=== PATIENT | female | born 1950 | race Caucasian/White ===

== ENCOUNTER 2021-12-15 09:24 | Emergency (ER) | payer MEDICARE, SELFPAY ==
--- NOTE | ~2021-12-15 | CT_ITS ---
EXAMINATION: CT ABDOMEN AND PELVIS WITH CONTRAST CLINICAL INFORMATION: Fever. Lower abdominal pain. Left flank pain. Dysuria. COMPARISON: None TECHNIQUE: Multidetector volumetric images were obtained from the superior aspect of the liver through the pubic symphysis following administration 85 mL of Omnipaque 350 intravenous contrast. Sagittal and coronal reformatted images were obtained on the technologist's workstation. Oral contrast: No. This CT examination was performed using dose optimization techniques as appropriate, variously including the following: *Automated exposure control *Adjustment of mA and/or kV according to patient size (this includes techniques or standardized protocols for targeted exams where dose is matched to indication/reason for exam; i.e. extremities or head) *Use of iterative reconstruction technique DLP: 338 mGy-cm FINDINGS: LUNG BASES: Mild changes of bronchiectasis are noted at the lung bases. No pleural or pericardial effusion. LIVER, GALLBLADDER, AND BILIARY TREE: The liver is normal in size, shape, and attenuation. No biliary ductal dilatation. A 0.5 cm low-attenuation lesion in the left hepatic lobe (series 4 image 108) is too small to characterize accurately, statistically likely represents a cyst or hemangioma. The gallbladder is unremarkable with no evidence of radiopaque gallstones, gallbladder wall thickening, or obvious pericholecystic inflammatory changes. PANCREAS: Unremarkable. SPLEEN: Unremarkable. ADRENAL GLANDS: Unremarkable. KIDNEYS AND URETERS: The kidneys are normal in size, shape, and attenuation. No hydronephrosis, hydroureter, or calculi seen. No perinephric stranding. Multiple bilateral low-attenuation renal lesions are noted ranging from a few millimeters to the largest partially exophytic lesion from the lower pole of the right kidney anteromedially measuring 2.8 cm. The lesions greater than 1 cm in size represent cysts by CT Hounsfield units criteria. Remainder of the subcentimeter lesions are too small to characterize accurately, however, statistically likely represent cysts. BLADDER: Unremarkable. GASTROINTESTINAL TRACT: The stomach and small bowel are not abnormally dilated. Colon is normal in caliber. No evidence of colonic wall thickening or pericolonic fat stranding. An appendix is normal. Moderate stool burden in the colon. ABDOMINAL WALL: No significant hernia is appreciated. LYMPH NODES: No pathologically enlarged lymph nodes are noted. VASCULAR: The aortoiliac vessels are normal in caliber. Celiac axis, SMA and CHRISTA are normal in caliber demonstrating intrahepatic and extrahepatic portal venous system, splenic vein and SMV are normal in caliber and well enhanced. PELVIC VISCERA: Unremarkable CT appearance of the uterus. No adnexal mass. OSSEOUS STRUCTURES: There is diffuse osteopenia. Mild reversed S-shaped scoliosis of the lumbar spine with multilevel degenerative disc disease indicated by narrowing of the disc spaces, vacuum disc phenomenon, endplate osteophytic changes, and sclerotic changes. There is grade 1 anterolisthesis of L5 over S1. No acute or suspicious osseous lesion. CT/CT abdomen pelvis w con IMPRESSION: No CT evidence to suggest pyelonephritis. No perinephric stranding. Multiple bilateral low-attenuation renal lesions, the lesions greater than 1 cm in size representing cysts by CT Hounsfield units criteria, the subcentimeter lesions are too small to characterize accurately, however, statistically likely represent cysts. Moderate stool burden in the colon. Subcentimeter low-attenuation lesion in the left hepatic lobe is too small to characterize accurately, statistically likely represent a cyst or hemangioma. Fleischner guidelines were followed.
[2021-12-15 09:53] VITALS: BP 136/79; PULSE 65; RESP 19; TEMP 36.6; O2SAT 99; BMI 18.8
[2021-12-15 11:39] LABS: Appearance Urine CLEAR; Color Urine YELLOW; Glucose Urine UA NEG (NEG); Leukocyte Esterase Urine NEG (NEG); Nitrite Urine NEG (NEG); PH 6.5 (5.0-8.0); Specific Gravity - Urine <= 1.005 (1.005-1.025); Urine Blood NEG (NEG); Urine Ketones NEG (NEG); Urine Protein NEG (NEG-TRACE)
--- NOTE | 2021-12-15 12:19 | ED.FEMALEGU ---
HPI - Female Genitourinary General Chief complaint: Urogenital-Female Stated complaint: nausea fever abd pain Time Seen by Provider: 12/15/21 11:53 Source: patient Mode of arrival: ambulatory Limitations: no limitations History of Present Illness HPI Narrative: 71 y/o female With history of cervical myelopathy, scoliosis, spinal cord injury who presents to the ER with dysuria, lower abdominal pain/pelvic pain, intermittent left sided flank pain and nausea for the last few weeks. She reports seeing her primary care doctor for these complaints, she had a pelvic examination, urinalysis, and bacterial workup which showed a UTI. She was treated with 5 days of Macrobid with no improvement in her symptoms. She also had a normal pelvic ultrasound at that time. Patient reports overnight she felt like her external and internal pelvic area is throbbing and inflamed in it made it so she could not sleep. When she checked her temperature this morning was 100.5 which prompted her to come to the emergency room for further evaluation. She denies any vomiting, diarrhea, upper abdominal pain. No shortness of breath, chest pain, cough or COVID symptoms. She denies any blood in her urine, difficulty urinating. She does have dribbling after she voids. MD elicited complaint: dysuria and pelvic pain Onset (ago): week(s) Location of symptoms: external genitalia, suprapubic, vaginal and pelvis Severity: moderate Female Urogenital Radiation: Non-Radiating Severity scale (1-10): 5 Quality of pain: burning and other (throbbing) Consistency: constant Vaginal discharge: none Vaginal bleeding: none Urinary symptoms: Dysuria and Flank Pain Exacerbating factors: urination and palpation Relieving factors: none Associated symptoms: abdominal pain, fever and nausea Sexual activity: No Related Data Previous Rx's Medication Instructions Recorded phenazopyridine 100 mg tablet 100 mg PO TID PRN #6 tab 12/15/21 (Pyridium) Allergies Allergy/AdvReac Type Severity Reaction Status Date / Time Sulfa (Sulfonamide Allergy Unknown UNKNOWN Verified 12/15/21 12:42 Antibiotics) [SULFA (SULFONAMIDE ANTIBIOTICS)] clindamycin Allergy Unknown Verified 12/15/21 12:43 Review of Systems Review of Systems: Constitutional: No Fever, No Chills ENT/Mouth: No sore throat, No Rhinorrhea, No Swallowing Difficulty Cardiovascular: No Chest Pain, No SOB, No Orthopnea, No Edema Respiratory: No Cough, No Sputum, No Wheezing, No dyspnea Gastrointestinal: No Nausea, No Vomiting, No Diarrhea, + abdominal Pain Genitourinary: + Dysuria, + Urinary Frequency, No Hematuria Musculoskeletal: No joint pain, No Myalgias Skin: No Skin Lesions, No rash Neuro: No Weakness, No Numbness, No Dizziness, No Headache Psych: + Anxiety/Panic Heme/Lymph: No Bruising, No Lymphadenopathy Endocrine: No Polyuria, No Polydipsia [facility] Past Medical History Medical History (Updated 12/15/21 @ 16:12 by ADOLFO Moran) Spinal cord injury at C1-C4 level Social History Social History Advance Directives: Yes Advance Directives on File: Yes Advance Directives Date on File: 12/15/21 Physical Exam Vital Signs: Vital Signs: Last Vital Signs Temp 98 F 12/15/21 09:53 Pulse 65 12/15/21 09:53 Resp 19 12/15/21 09:53 BP 136/79 12/15/21 09:53 Pulse Ox 99 12/15/21 09:53 BMI result Body Mass Index 18.8 Appearance: Alert. Oriented X3. No acute distress. Eyes: Pupils equal, round and reactive to light. ENT: Pharynx normal. Neck: Normal inspection. Neck supple. CVS: Normal heart rate and rhythm. Pulses normal. Respiratory: No respiratory distress. Breath sounds normal. Abdomen: Soft and nontender. +BS x4 Genitalia: normal inspection of labia with tenderness to both the majora and minora without any erythema, excoriations or rash. vaginal introitus normal, no visible discharge. Skin: Skin warm and dry. Normal skin color. Normal skin turgor. No rashes. Extremities: No lower extremity edema. Neuro: Oriented X 3. No motor deficit. No sensory deficit. Course Course Course Narrative: 71 y/o female presenting with burning and inflammed external and internal pelvic area. She had a recent pelvic exam and transvaginal ultrasound which were unremarkable. She reports bacterial studies were negative. She does completed a course of Macrobid for 5 days for UTI. No improvement in her symptoms. Will defer pelvic exam for now. Her external genitalia appear normal although she reports some tenderness. No evidence of excoriations or yeast infection of the skin. Will check UA, lab workup and consider CT scan. Reevaluation(s) Reevaluation #1: Urinalysis is negative for infection. Her lab workup is unremarkable. Her CT scan does not show any findings that would explain her symptoms. Case was discussed with Dr. Velazquez. Recommending trial of oral Pyridium and following back up with her hypercil core transformer assembler. Requesting referral to assignment clerk here, will give Dr. Noriega's number. She will also follow up with her primary care doctor this week. Patient is stable for discharge home. MDM - Female Genitourinary Lab Data Result diagrams: 12/15/21 12:36 12/15/21 12:36 Labs: Lab Results 12/15/21 12/15/21 12/15/21 Range/Units 11:32 12:36 12:36 WBC 6.9 (4.8-10.8) X10*3/uL RBC 4.61 (4.20-5.50) X10*6/uL Hgb 13.8 (12.0-16.0) g/dl Hct 42.9 (37.0-47.0) % MCV 93.1 (80.0-98.0) fL MCH 29.9 (27.0-33.0) pg MCHC 32.2 (31.0-35.0) g/dl RDW 12.6 (11.0-16.0) % Plt Count 212 (160-400) X10*3/uL MPV 11.5 (9.4-12.3) fL Immature Gran % (Auto) 0.3 (0.0-0.4) % Neut % (Auto) 56.5 (45-73) % Lymph % (Auto) 26.6 (20-40) % [place] % (Auto) 8.1 (2-11) % Eos % (Auto) 8.1 H (0-4) % Baso % (Auto) 0.4 (0-2) % Lymph # (Auto) 1.8 (1.2-4.9) X10*3/uL Frederick # (Auto) 0.6 (0.1-1.2) X10*3/uL Eos # (Auto) 0.6 H (0.0-0.4) X10*3/uL Baso # (Auto) 0.0 (0.0-0.2) X10*3/uL Abs Immat Gran (auto) 0.02 (0.00-0.03) X10*3/uL Absolute Neuts (auto) 3.9 (2.0-8.3) x10*3/uL Absolute Nucleated RBC 0.000 (0.0-0.012) X10*3/uL Nucleated RBC % (auto) 0.0 (0.0-0.2) /100WBC Sodium 141 (135-145) mmol/L Potassium 4.4 (3.3-5.1) mmol/L Chloride 107 (96-108) mmol/L Carbon Dioxide 25 (22-29) mmol/L Anion Gap 13 (12-20) BUN 15 (9-16) mg/dL Creatinine 0.80 (0.5-1.4) mg/dL Estim Creat Clear Calc 46.8 Estimated GFR > 60 Random Glucose 81 (60-115) mg/dL Calcium 9.1 (8.4-10.2) mg/dL Magnesium 2.1 (1.6-2.6) mg/dL Total Bilirubin 0.5 (0.0-1.0) mg/dL Direct Bilirubin 0.2 (0.0-0.5) mg/dL AST 23 (5-31) U/L ALT 16 (0-31) U/L Alkaline Phosphatase 93 (39-117) U/L Total Protein 6.8 (6.5-8.0) g/dL Albumin 3.9 (3.5-5.0) g/dL Urine Color YELLOW Urine Appearance CLEAR Urine pH 6.5 (5.0-8.0) Ur Specific [place] <= 1.005 (1.005-1.025) Urine Protein NEG (NEG-TRACE) MG/DL Urine Glucose (UA) NEG (NEG) MG/DL Urine Ketones NEG (NEG) MG/DL Urine Blood NEG (NEG) Urine Nitrite NEG (NEG) Ur Leukocyte Esterase NEG (NEG) COVID-19 (VAHID) (Negative) COVID-19 Clin Com 12/15/21 Range/Units 12:37 WBC (4.8-10.8) X10*3/uL RBC (4.20-5.50) X10*6/uL Hgb (12.0-16.0) g/dl Hct (37.0-47.0) % MCV (80.0-98.0) fL MCH (27.0-33.0) pg MCHC (31.0-35.0) g/dl RDW (11.0-16.0) % Plt Count (160-400) X10*3/uL MPV (9.4-12.3) fL Immature Gran % (Auto) (0.0-0.4) % Neut % (Auto) (45-73) % Lymph % (Auto) (20-40) % Frederick % (Auto) (2-11) % Eos % (Auto) (0-4) % Baso % (Auto) (0-2) % Lymph # (Auto) (1.2-4.9) X10*3/uL [place] # (Auto) (0.1-1.2) X10*3/uL Eos # (Auto) (0.0-0.4) X10*3/uL Baso # (Auto) (0.0-0.2) X10*3/uL Abs Immat Gran (auto) (0.00-0.03) X10*3/uL Absolute Neuts (auto) (2.0-8.3) x10*3/uL Absolute Nucleated RBC (0.0-0.012) X10*3/uL Nucleated RBC % (auto) (0.0-0.2) /100WBC Sodium (135-145) mmol/L Potassium (3.3-5.1) mmol/L Chloride (96-108) mmol/L Carbon Dioxide (22-29) mmol/L Anion Gap (12-20) BUN (9-16) mg/dL Creatinine (0.5-1.4) mg/dL Estim Creat Clear Calc Estimated GFR Random Glucose (60-115) mg/dL Calcium (8.4-10.2) mg/dL Magnesium (1.6-2.6) mg/dL Total Bilirubin (0.0-1.0) mg/dL Direct Bilirubin (0.0-0.5) mg/dL AST (5-31) U/L ALT (0-31) U/L Alkaline Phosphatase (39-117) U/L Total Protein (6.5-8.0) g/dL Albumin (3.5-5.0) g/dL Urine Color Urine Appearance Urine pH (5.0-8.0) Ur Specific [place] (1.005-1.025) Urine Protein (NEG-TRACE) MG/DL Urine Glucose (UA) (NEG) MG/DL Urine Ketones (NEG) MG/DL Urine Blood (NEG) Urine Nitrite (NEG) Ur Leukocyte Esterase (NEG) COVID-19 (VAHID) Negative (Negative) COVID-19 Clin Com See Note Critical Care Time Critical Care Time Critical Care Time: No Discharge Plan Discharge Clinical Impression: Cystitis Patient Disposition: Home, Self-Care Instructions: Pelvic Pain in Women (ED), Interstitial Cystitis (ED) Additional Instructions: your urine test did not show any evidence of infection. your lab workup was unremarkable. your CT scan did not show any significant abnormalities to explain your symptoms. recommend following up with REGULATOR PIN INSERTER this week for further evaluation drink plenty of water and stay hydrated take the prescribed Pyridium medication as needed for pelvic/bladder pain follow up with your doctor this week if you develop new or worsening symptoms call 911 or come back to the ER for further evaluation. Prescriptions: New phenazopyridine [Pyridium] 100 mg tablet 100 mg PO TID PRN (Reason: pain) Qty: 6 RF: 0 Referrals: Milan Noriega MD [Physician] - 2 days (pelvic pain, cystitis)
--- NOTE | 2021-12-15 12:40 | PC.NURSE ---
Pt received: AOX4 and ambulatory with cane. Pt c/o L flank pain radiating towards L lower abd with internal burning of lower abd and while urinating. Pt abd tenderness noted. Heart sounds normala dn lungs clear.
[2021-12-15 12:43] LABS: MANUAL DIFF FLAG NO
[2021-12-15 12:44] LABS: Basophils Percent Auto 0.4 % (0-2); Eosinophils Absolute Auto 0.6 X10*3/uL (0.0-0.4); Eosinophils Percent Auto 8.1 % (0-4); Hematocrit 42.9 % (37.0-47.0); Hemoglobin 13.8 g/dl (12.0-16.0); Imm Gran Abs Auto 0.02 X10*3/uL (0.00-0.03); Imm Gran Pct Auto 0.3 % (0.0-0.4); Lymphocytes Absolute Auto 1.8 X10*3/uL (1.2-4.9); Lymphocytes Percent Auto 26.6 % (20-40); Mean Corpuscular HGB Conc 32.2 g/dl (31.0-35.0); Mean Corpuscular Hemoglobin 29.9 pg (27.0-33.0); Mean Corpuscular Volume 93.1 fL (80.0-98.0); Mean Platelet Volume 11.5 fL (9.4-12.3); Monocytes Absolute Auto 0.6 X10*3/uL (0.1-1.2); Monocytes Percent Auto 8.1 % (2-11); Neutrophils Absolute Auto 3.9 x10*3/uL (2.0-8.3); Neutrophils Percent Auto 56.5 % (45-73); Platelet Count 212 X10*3/uL (160-400); Red Blood Count 4.61 X10*6/uL (4.20-5.50); Red Cell Distribution Width 12.6 % (11.0-16.0); White Blood Count 6.9 X10*3/uL (4.8-10.8)
[2021-12-15 12:59] LABS: Alanine Aminotransferase 16 U/L (0-31); Albumin Level 3.9 g/dL (3.5-5.0); Alkaline Phosphatase 93 U/L (39-117); Anion Gap 13 (12-20); Aspartate Amino Transferase 23 U/L (5-31); Bilirubin Direct 0.2 mg/dL (0.0-0.5); Bilirubin Total 0.5 mg/dL (0.0-1.0); Blood Urea Nitrogen 15 mg/dL (9-16); Calcium 9.1 mg/dL (8.4-10.2); Carbon Dioxide 25 mmol/L (22-29); Chloride 107 mmol/L (96-108); Creatinine Clr Calc Pharmacy 46.8; Estimated Glomerular Filt Rate > 60; Glucose Random 81 mg/dL (60-115); Magnesium 2.1 mg/dL (1.6-2.6); Potassium 4.4 mmol/L (3.3-5.1); Sodium 141 mmol/L (135-145); Total Protein 6.8 g/dL (6.5-8.0)
[2021-12-15 13:01] LABS: COVID-19 Test Negative (Negative)
[2021-12-15] MEDS: iohexoL 350 MG/ML 100 ML INFUS..BTL IV (13:41)
== END 2021-12-15 16:28 | disposition home or self-care (01) ==
PROVIDERS: Physician Assistant; Emergency Provider Emergency Medicine; PCP Internal Medicine
DX: R30.0 Dysuria (principal); R50.9 Fever, unspecified; R00.2 Palpitations; Z20.822 Contact with and (suspected) exposure to COVID-19; Z79.899 Other long term (current) drug therapy
CPT/HCPCS: 74177; 80048; 80076; 81003; 83735; 85025; 87635; 99283; Q9967